=== PATIENT | male | born 1990 | race Caucasian/White ===

== ENCOUNTER 2017-10-09 13:48 | Emergency (ER) | payer OTHER, SELFPAY ==
[2017-10-09 13:53] VITALS: BP 124/72; PULSE 22; RESP 86; TEMP 36.6; O2SAT 100
--- NOTE | 2017-10-09 14:34 | ED.BACK ---
HPI - Back Pain/Injury <CHILANGO Loving - Last Filed: 10/09/17 23:28> General Chief Complaint: Trauma Stated Complaint: FELL OFF ROOF Time Seen by Provider: 10/09/17 14:32 History of Present Illness HPI Narrative: Healthy 27-year-old male here for complaint of pain into his lower back and mid back and right knee. He states that he fell off of a ladder and fell approximately 8 ft landing on his right leg and lower back. This happened approximately 2 days ago. He states that pain into his lower back has not resolved since this timeframe. He denies any head injury. No loss of consciousness. Pain is limited to the back and to the right knee. He is ambulatory into the emergency room. He denies any loss of bladder or bowel control. Increased pain with palpation to the lower back. MD Complaint: back injury and fall Related Data Home Medications Medication Instructions Recorded Confirmed albuterol sulfate [ProAir HFA] 1 - 2 puff INHALATION Q4H PRN 10/09/17 10/09/17 prazosin 1 mg PO BEDTIME 10/09/17 10/09/17 quetiapine 1 tab PO DAILY 10/09/17 10/09/17 Previous Rx's Medication Instructions Recorded hydrocodone-acetaminophen 1 tab PO Q4-6H PRN #10 tab 10/09/17 Allergies Allergy/AdvReac Type Severity Reaction Status Date / Time ibuprofen AdvReac Nausea Verified 10/09/17 13:57 lorazepam [From Ativan] AdvReac Nausea Verified 10/09/17 13:57 Review of Systems <CHILANGO Loving - Last Filed: 10/09/17 23:28> Constitutional Denies chills, Denies fever(s), Denies lethargy and Denies weakness Eyes Denies change in vision, Denies eye discharge, Denies irritation and Denies loss of vision ENT Ears, Nose, Mouth, and Throat: Denies change in voice, Denies neck pain and Denies sore throat Cardiovascular Denies chest pain, Denies irregular heart rhythm, Denies lightheadedness, Denies palpitations, Denies dyspnea, Denies dyspnea on exertion and Denies orthopnea Respiratory Denies cough, Denies dyspnea, Denies dyspnea on exertion and Denies wheezing Gastrointestinal Gastrointestinal: Denies abdominal pain, Denies change in bowel habits, Denies diarrhea, Denies nausea and Denies vomiting Genitourinary Denies hematuria, Denies flank pain, Denies urinary incontinence and Denies urinary urgency Musculoskeletal Reports back pain and Denies neck pain Comments: Right knee pain Integumentary/Breasts Denies pruritus, Denies erythema, Denies rash and Denies wounds Neurologic Denies confusion, Denies loss of vision and Denies weakness Psychiatric Denies anxiety, Denies confusion, Denies depression, Denies homicidal ideation and Denies suicidal ideation Endocrine Denies palpitations Allergic/Immunologic Denies wheezing Exam <RAYSA LovingP - Last Filed: 10/09/17 23:28> Initial Vital Signs Initial Vital Signs: Vital Signs Temperature 97.9 F 10/09/17 13:53 Pulse Rate 22 L 10/09/17 13:53 Respiratory Rate 86 H 10/09/17 13:53 Blood Pressure 124/72 H 10/09/17 13:53 Pulse Oximetry 100 10/09/17 13:53 Const General: cooperative and well developed Nutritional Appearance: well nourished Orientation: alert, awake, oriented x3 and not confused HENIN Mouth: oral mucosae normal and moist mucous membranes Eyes Conjunctivae: conjunctivae normal Sclera: sclerae normal Pupils: PERRL EOM: EOM intact bilaterally Resp Effort & Inspection: normal respiratory effort, able to speak in complete sentences, no respiratory distress and no use of accessory muscles Auscultation: clear to auscultation bilaterally, no rales, no rhonchi and no wheezes Cardio Rate: regular rate Rhythm: regular rhythm Heart Sounds: no click, no gallops, no murmurs and no rubs Back/Spine/Pelvis Back: back tenderness (Tenderness on palpation into a bilateral paraspinals of the thoracic and lumbar spine. Tenderness also midline to the thoracic and lumbar spine. No deformities are seen.) Thoracic/Lumbar Spine: paraspinal tenderness, thoracic spinal tenderness and lumbar spinal tenderness Skin General: no rashes or lesions noted, No jaundice and No petechiae Neuro Cognition: normal cognition Speech: speech normal Gait: normal gait Motor: muscle tone normal throughout Sensory Exam: no sensory deficits noted <Altaf Sams DO - Last Filed: 10/16/17 07:12> Initial Vital Signs Initial Vital Signs: Vital Signs Temperature 97.9 F 10/09/17 13:53 Pulse Rate 22 L 10/09/17 13:53 Respiratory Rate 86 H 10/09/17 13:53 Blood Pressure 124/72 H 10/09/17 13:53 Pulse Oximetry 100 10/09/17 13:53 Course <CHILANGO Loving - Last Filed: 10/09/17 23:28> Orders Ordered: Discontinued Medications Hydrocodone Bitart/Acetaminophen ([place] 5/325) 2 tab PO NOW ONE Stop: 10/09/17 16:02 Last Admin: 10/09/17 16:11 Dose: 2 tab Vital Signs - 8 hr 10/09/17 13:53 Temperature 97.9 F Pulse Rate 22 L Respiratory Rate 86 H Blood Pressure 124/72 H Pulse Oximetry 100 <Altaf Sams DO - Last Filed: 10/16/17 07:12> Orders Ordered: Discontinued Medications Hydrocodone Bitart/Acetaminophen ([place] 5/325) 2 tab PO NOW ONE Stop: 10/09/17 16:02 Last Admin: 10/09/17 16:11 Dose: 2 tab Vital Signs - 8 hr 10/09/17 13:53 Temperature 97.9 F Pulse Rate 22 L Respiratory Rate 86 H Blood Pressure 124/72 H Pulse Oximetry 100 MDM - Back Pain/Injury <CHILANGO Loving - Last Filed: 10/09/17 23:28> Imaging Data Thoracic spine CT: Radiologist's impression: Patient: CARLOS CABRERA MR#: [id number] : 1990 Acct:[id number] Age/Sex: 27 / M Date of Service: 10/09/17 Loc: ED Accession Number: [id number] Procedure: CT thoracic spine wo con Ordering Provider: Adryan Luevano PROCEDURE: CT THORACIC SPINE WO CON INDICATIONS: Pain into mid and lower back status post 8 ft fall TECHNIQUE: Noncontrast 3 mm thick sections acquired through the region of interest in the thoracic spine. Sagittal and coronal reformats were then constructed. For radiation dose reduction, the following was used: automated exposure control. COMPARISON: None. FINDINGS: Image quality: Excellent. Bones: There is normal overall bony alignment. No acute vertebral body compression fractures. No suspicious sclerotic or lytic bony lesions. Central spinal canal is of normal overall caliber. Soft tissues: No paravertebral masses or hematomas. Visualized posteromedial lungs appear clear. IMPRESSION: A fracture or traumatic disc herniation is not found. If unusual symptoms persist improved imaging of the spinal column and spinal canal can be achieved utilizing MR scanning. Dictated by: Carlos Burns M.D. on 10/09/2017 at 15:27 Approved by: Carlos Burns M.D. on 10/09/2017 at 15:[address] : Radiologist's impression: PROCEDURE: CT LUMBAR SPINE WO CON INDICATIONS: Pain into mid and lower back status post 8 ft fall off a lad TECHNIQUE: Noncontrast 3 mm thick sections acquired from the T12 level to the sacrum. Sagittal and coronal reformats were constructed. For radiation dose reduction, the following was used: automated exposure control. COMPARISON: None. FINDINGS: Image quality: Diagnostic. Bones: There are 5 lumbar-type vertebral bodies. The lowest intervertebral disk space is designated as L5-S1. The vertebral body heights are well-maintained without evidence to suggest an acute compression fracture. No displaced fractures are present. The bone mineralization is within normal limits. No significant degenerative changes of the lumbar spine are identified. Bony alignment of the lumbar spine is within normal limits. There is no spondylolisthesis. Soft tissues: The soft tissues of the imaged abdomen and pelvis are within normal limits. No retroperitoneal masses or fluid collections are evident. Abdominal aorta is normal in course and caliber. Imaged bowel loops are nondilated. Scattered small retroperitoneal lymph nodes are nonpathologic enlarged. IMPRESSION: No acute osseous abnormality of the lumbar spine. Dictated by: Reagan Montoya M.D. on 10/09/2017 at 14:35 Approved by: Reagan Montoya M.D. on 10/09/2017 at 14:37 Right knee : Radiologist's impression: PROCEDURE: XR KNEE RT 3V INDICATIONS: Pain to right knee status post fall off ladder TECHNIQUE: 3 views of the knee were acquired. COMPARISON: None. FINDINGS: Bones: No fractures or dislocations. No suspicious bony lesions. Soft tissues: Moderate joint effusion. No suspicious soft tissue calcifications. IMPRESSION: Moderate effusion. No visualized acute fracture or dislocation. However, if clinical concern and/or pain persist, short interval imaging followup in 7-10 days is recommended, as occult injury cannot be definitively excluded. Dictated by: Shelli Warner M.D. on 10/09/2017 at 15:42 Approved by: Shelli Warner M.D. on 10/09/2017 at 15:43 MDM Narrative Medical decision making narrative: CT of thoracic and lumbar spine were obtained were negative for any acute findings. X-ray of the right knee was obtained was also negative for any acute findings. Signs and symptoms presents as lower back pain due to strain/contusion to lower back and sprain into the right knee. [id number] Tylenol as needed for any discomfort. Follow up with primary care provider later this week for re-evaluation. If symptoms do not resolve after 7-10 days recommend advanced imaging such as MRI. He is placed in knee immobilizer and crutches for comfort support and nonweightbearing. Patient requested some pain medications he was prescribed a small amount of [place]. For any worsening symptoms return to the emergency room. Discharge Plan Departure Patient Disposition: Home, Self-Care Clinical Impression: Right knee sprain, Low back pain Discharge Date/Time: 10/09/17 16:33 Interventions: ED Discharge Assessment Last Done: 10/09/17 16:31 Instructions: DI for Low Back Pain Activity Restrictions/Additional Instructions: CT of the back and also x-ray of the right knee were negative for any acute findings. Signs and symptoms presents as a sprain to the right knee and strain to lower back. Use [id number] Tylenol as needed for any discomfort. Small amount of [place] is prescribed for breakthrough pain use as directed. Follow up with your primary care provider later this week. If symptoms do not resolve after 7-10 days recommend follow-up and discussion of advanced imaging. For any worsening symptoms return to the emergency room. UR placed in a knee immobilizer and crutches for comfort support and nonweightbearing use as directed. Prescriptions: New hydrocodone-acetaminophen 5-325 mg tablet 1 tab PO Q4-6H PRN (Reason: pain) Qty: 10 RF: 0 No Action prazosin 1 mg Capsule 1 mg PO BEDTIME RF: 0 albuterol sulfate [ProAir HFA] 90 mcg/actuation HFA aerosol inhaler 1 - 2 puff Inhalation Q4H PRN (Reason: Cough) RF: 0 quetiapine 300 mg tablet extended release 24 hr 1 tab PO DAILY RF: 0 Referrals: [facility] [Provider Group] <Altaf Sams DO - Last Filed: 10/16/17 07:12> [facility]: I was available for consultation during this patient's emergency department encounter
--- NOTE | 2017-10-09 15:07 | DI.CT.S_ITS ---
PROCEDURE: CT LUMBAR SPINE WO CON INDICATIONS: Pain into mid and lower back status post 8 ft fall off a lad TECHNIQUE: Noncontrast 3 mm thick sections acquired from the T12 level to the sacrum. Sagittal and coronal reformats were constructed. For radiation dose reduction, the following was used: automated exposure control. COMPARISON: None. FINDINGS: Image quality: Diagnostic. Bones: There are 5 lumbar-type vertebral bodies. The lowest intervertebral disk space is designated as L5-S1. The vertebral body heights are well-maintained without evidence to suggest an acute compression fracture. No displaced fractures are present. The bone mineralization is within normal limits. No significant degenerative changes of the lumbar spine are identified. Bony alignment of the lumbar spine is within normal limits. There is no spondylolisthesis. Soft tissues: The soft tissues of the imaged abdomen and pelvis are within normal limits. No retroperitoneal masses or fluid collections are evident. Abdominal aorta is normal in course and caliber. Imaged bowel loops are nondilated. Scattered small retroperitoneal lymph nodes are nonpathologic enlarged. IMPRESSION: No acute osseous abnormality of the lumbar spine. Dictated by: Reagan Montoya M.D. on 10/09/2017 at 14:35 Approved by: Reagan Montoya M.D. on 10/09/2017 at 14:37
--- NOTE | 2017-10-09 15:07 | DI.CT.S_ITS ---
PROCEDURE: CT THORACIC SPINE WO CON INDICATIONS: Pain into mid and lower back status post 8 ft fall TECHNIQUE: Noncontrast 3 mm thick sections acquired through the region of interest in the thoracic spine. Sagittal and coronal reformats were then constructed. For radiation dose reduction, the following was used: automated exposure control. COMPARISON: None. FINDINGS: Image quality: Excellent. Bones: There is normal overall bony alignment. No acute vertebral body compression fractures. No suspicious sclerotic or lytic bony lesions. Central spinal canal is of normal overall caliber. Soft tissues: No paravertebral masses or hematomas. Visualized posteromedial lungs appear clear. IMPRESSION: A fracture or traumatic disc herniation is not found. If unusual symptoms persist improved imaging of the spinal column and spinal canal can be achieved utilizing MR scanning. Dictated by: Carlos Burns M.D. on 10/09/2017 at 15:27 Approved by: Carlos Burns M.D. on 10/09/2017 at 15:31
--- NOTE | 2017-10-09 15:09 | DI.RAD.S_ITS ---
PROCEDURE: XR KNEE RT 3V INDICATIONS: Pain to right knee status post fall off ladder TECHNIQUE: 3 views of the knee were acquired. COMPARISON: None. FINDINGS: Bones: No fractures or dislocations. No suspicious bony lesions. Soft tissues: Moderate joint effusion. No suspicious soft tissue calcifications. IMPRESSION: Moderate effusion. No visualized acute fracture or dislocation. However, if clinical concern and/or pain persist, short interval imaging followup in 7-10 days is recommended, as occult injury cannot be definitively excluded. Dictated by: Shelli Warner M.D. on 10/09/2017 at 15:42 Approved by: Shelli Warner M.D. on 10/09/2017 at 15:43
[2017-10-09] MEDS: HYDROCODONE/ACET 5/325 TABLET 2 TAB PO (16:11)
== END 2017-10-09 16:33 | disposition home or self-care (01) ==
PROVIDERS: Emergency Provider Nurse Practitioner Family
DX: S83.91XA Sprain of unspecified site of right knee, initial encounter (principal); M54.5 Low back pain; W13.2XXA Fall from, out of or through roof, initial encounter
CPT/HCPCS: 72128; 72131; 73562; 99283; 99284

== ENCOUNTER 2017-11-09 16:50 | Emergency (ER) | payer SELFPAY ==
[2017-11-09 17:02] VITALS: BMI 22.0
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
== END 2017-11-09 17:27 | disposition left against medical advice (07) ==
LOC: ED 17:32
DX: M54.9 Dorsalgia, unspecified (principal)
CPT/HCPCS: 99281; 99282